=== PATIENT | female | born 1995 ===

== ENCOUNTER 2016-05-13 11:21 | Emergency (ER) | payer OTHER ==
[2016-05-13 11:41] VITALS: BP 124/75
--- NOTE | 2016-05-13 13:32 | UC ---
Throat Pain/Nasal Butch HPI - HPI Summary HPI Summary: YESTERDAY AFTERNOON COMPLAINTS OF FATIGUE, BODY ACHES HEAD ACHE POST NASAL DRIP AND COUGH. NO FEVER. - History of Current Complaint Chief Complaint: UCGeneralIllness Stated Complaint: HEADACHE SORE THROAT COUGH Time Seen by Provider: 05/13/16 11:34 Hx Obtained From: Patient Hx Last Menstrual Period: 04/30/16 Onset/Duration: Sudden Onset, Lasting Days, Still Present Severity: Mild Pain Intensity: 4 Pain Scale Used: 0-10 Numeric Cough: Nonproductive Associated Signs & Symptoms: Positive: Hoarseness. Negative: Fever - Epiglottits Risk Factors Epiglottis Risk Factors: Negative - Allergies/Home Medications Allergies/Adverse Reactions: Allergies Allergy/AdvReac Type Severity Reaction Status Date / Time No Known Allergies Allergy Verified 05/13/16 11:30 Home Medications: Home Medications Azelastine/Fluticasone DUSTIN(NF [Dymista(NF)] 1 spray NASAL DAILY 05/13/16 [ History Confirmed 05/13/16] Esomeprazole Magnesium [Nexium] 20 mg PO DAILY 05/13/16 [History Confirmed 05/13] LevoCETirizine TAB (NF) [Xyzal TAB (NF)] 1 tab PO DAILY 05/13/16 [History Confirmed 05/13/16] Norethin Acet & Estrad-Fe [Taytulla 1-20 mg-Mcg(24)] 1 tab PO DAILY 05/13/16 [ History Confirmed 05/13/16] PMH/Surg Hx/FS Hx/Imm Hx Previously Healthy: Yes - Surgical History Surgical History: None - Family History Known Family History: Negative: Respiratory Disease - Social History Occupation: Student Lives: Alone Alcohol Use: Weekly Alcohol Amount: 1 x weekly Substance Use Type: None Smoking Status (MU): Never Smoked Tobacco - Immunization History Most Recent Influenza Vaccination: Not UTD Review of Systems Constitutional: Fatigue Skin: Negative Eyes: Negative ENT: Sore Throat, Nasal Discharge Respiratory: Cough Cardiovascular: Negative Gastrointestinal: Negative Genitourinary: Negative Motor: Negative Neurovascular: Negative Musculoskeletal: Myalgia Neurological: Headache Psychological: Negative All Other Systems Reviewed And Are Negative: Yes Physical Exam Triage Information Reviewed: Yes Appearance: Well-Appearing, No Pain Distress, Well-Nourished Vital Signs: Initial Vital Signs Temp 98.7 F 05/13/16 11:35 Pulse 86 05/13/16 11:35 Resp 16 05/13/16 11:35 BP 124/75 05/13/16 11:35 Pulse Ox 98 05/13/16 11:35 Vital Signs Reviewed: Yes Eye Exam: Normal ENT Exam: Normal ENT: Positive: Normal ENT inspection, Hearing grossly normal, Pharynx normal, TMs normal Dental Exam: Normal Neck: Positive: Tenderness @ - ANTERIOR CERVICAL LN CHAIN, Enlarged Nodes @ - MILD ANTERIOR CERVICAL LN CHAIN, Other: - REFUSED KERNIGS (BUT WAS ABLE TO FLEX NECK IN TRANSITION) NEGATIVE BRUDZINSKI'S TEST. Negative: Nuchal Rigidity Respiratory Exam: Normal Respiratory: Positive: Chest non-tender, Lungs clear, Normal breath sounds, No respiratory distress, No accessory muscle use Cardiovascular Exam: Normal Cardiovascular: Positive: RRR, No Murmur, Pulses Normal, Brisk Capillary Refill Abdominal Exam: Normal Abdomen Description: Positive: Nontender, No Organomegaly Musculoskeletal Exam: Normal Musculoskeletal: Positive: Strength Intact, ROM Intact Neurological: Positive: Alert, Muscle Tone Normal, Other: - CN 2-12 INTACT Psychological Exam: Normal Skin Exam: Normal Throat Pain/Nasal Course/Dx - Differential Dx/Diagnosis Differential Diagnosis/HQI/PQRI: Influenza, Laryngitis, Otitis Media, Pharyngitis, Sinusitis, URI Provider Diagnoses: UPPER RESPIRATORY INFECTION. VIRAL SYNDROME Discharge - Discharge Plan Condition: Stable Disposition: HOME Patient Education Materials: Upper Respiratory Infection (ED), Viral Syndrome ( ED) Referrals: [facility] [Outside] No Primary Care Phys,NOPCP [Primary Care Provider] -
== END 2016-05-13 12:45 | disposition home or self-care (01) ==
LOC: UCEAST 11:21
DX: J06.9 Acute upper respiratory infection, unspecified (principal)
CPT/HCPCS: 87502; 87651; 99212; G0463